=== PATIENT | female | born 1955 | race Caucasian/White ===

== ENCOUNTER 2017-07-18 16:40 | Emergency (ER) | payer OTHER, MEDICARE ==
[~2017-07-18] VITALS: Ht 165.1 cm; Wt 83.0 kg
[2017-07-18 16:55] VITALS: BP 117/84
== END 2017-07-18 19:13 | disposition home or self-care (01) ==
LOC: EME 16:40
DX: S16.1XXA Strain of muscle, fascia and tendon at neck level, initial encounter (principal); V43.52XA Car driver injured in collision with other type car in traffic accident, initial encounter; Z88.1 Allergy status to other antibiotic agents
CPT/HCPCS: 72050; 99281; 99283